=== PATIENT | female | born 1960 | race Two or more races ===

== ENCOUNTER 2022-04-03 18:49 | Emergency (ER) | payer MEDICAID, OTHER ==
[~2022-04-03] VITALS: Ht 152.4 cm; Wt 82.7 kg
[2022-04-03 19:39] LABS: Basophils # (auto) 0.3 10 ^3/uL (0-0.2); Basophils % (auto) 4.1 % (0.0-2.0); Eosinophils # (auto) 0.2 10 ^3/uL (0-0.8); Eosinophils % (auto) 3.5 % (0.0-7.0); Hemoglobin 12.5 g/dL (12.2-16.2); Lymphocytes # (auto) 1.3 10 ^3/uL (0.4-5.4); Lymphocytes % (auto) 20.6 % (10.0-50.0); Mean Corpuscular Hemoglobin 29.3 pg (28.0-32.0); Mean Corpuscular Hgb Conc. 33.7 g/dL (32.0-36.0); Monocytes # (auto) 0.4 10 ^3/uL (0-1.3); Neutrophils # (auto) 4.2 10 ^3/uL (1.6-8.6); Neutrophils % (auto) 65.8 % (37.0-80.0); Nucleated Red Blood Cells % 0.4 %; Red Blood Cells 4.25 10^6/uL (4.0-5.20); Red Cell Distribution Width 13.7 % (11.8-14.3); White Blood Cell 6.4 10^3/uL (4.4-10.8)
[2022-04-03 19:57] LABS: Albumin 3.7 g/dL (3.4-5.0); Calcium 9.2 mg/dL (8.5-10.1)
[2022-04-03 19:59] LABS: Bilirubin, Total 0.3 mg/dL (0.2-1.0); Total Protein 7.2 g/dL (6.4-8.2)
[2022-04-03 20:45] LABS: Urine Bacteria NONE SEEN /hpf (None Seen); Urine Blood Negative /uL (Negative); Urine Specific Gravity 1.007 (1.001-1.035); Urine WBC <1 /hpf (0 - 5)
[2022-04-03] MEDS ORDERED: LISINOPRIL 20 MG TAB PO ONE (22:30)
[2022-04-03] MEDS ORDERED: HCTZ 25 MG TAB PO ONE (22:30)
[2022-04-03] MEDS ORDERED: LISI-707 PO (22:34)
[2022-04-03 23:09] VITALS: BP 141/68
== END 2022-04-03 23:28 | disposition home or self-care (01) ==
LOC: ER 18:49
DX: R51.9 Headache, unspecified (principal); R07.89 Other chest pain; I10 Essential (primary) hypertension; Z76.0 Encounter for issue of repeat prescription
CPT/HCPCS: 36415; 70450; 71045; 80053; 81001; 83880; 84484; 85025; 93005

== ENCOUNTER → 2024-02-06 | Outpatient (CLI) | payer BC ==
[~2024-02-06] MED LIST: LISI-707 PO
[2024-02-06 11:16] LABS: Basophils # (auto) 0 10 ^3/uL (0-0.2); Basophils % (auto) 0.7 % (0.0-2.0); Eosinophils # (auto) 0.2 10 ^3/uL (0-0.8); Eosinophils % (auto) 2.5 % (0.0-7.0); Hematocrit 39.4 % (36.0-46.0); Lymphocytes # (auto) 1.9 10 ^3/uL (0.4-5.4); Lymphocytes % (auto) 31.8 % (10.0-50.0); Mean Corpuscular Hemoglobin 29.3 pg (28.0-32.0); Mean Corpuscular Volume 88.8 fL (80.0-100.0); Monocytes # (auto) 0.4 10 ^3/uL (0-1.3); Monocytes % (auto) 6.6 % (0.0-12.0); Neutrophils # (auto) 3.5 10 ^3/uL (1.6-8.6); Neutrophils % (auto) 58.4 % (37.0-80.0); Platelet Count (auto) 294 10^3/uL (140-450); Red Blood Cells 4.43 10^6/uL (4.0-5.20); Red Cell Distribution Width 13.5 % (11.8-14.3)
[2024-02-06 11:36] LABS: Alanine Aminotransferase 56 U/L (7-40); Albumin 4.5 g/dL (3.2-4.8); Alkaline Phosphatase 68 U/L (46-116); Anion Gap 8 (5-15); Aspartate Aminotransferase 32 U/L (13-40); BUN/Creatinine Ratio 18.7 (10.0-20.0); Bilirubin, Total 0.5 mg/dL (0.2-1.0); Blood Urea Nitrogen 17 mg/dL (9-23); Calcium 10.6 mg/dL (8.7-10.4); Carbon Dioxide 29 mmol/L (20-31); Chloride 103 mmol/L (98-107); Cholesterol 158 mg/dL (< 200); Glucose 158 mg/dL (74-106); HDL Cholesterol 54 mg/dL (40-59); LDL Cholesterol 88 mg/dL (< 100); Potassium 4.2 mmol/L (3.5-5.1); Sodium 140 mmol/L (136-145); Total Protein 7.4 g/dL (5.7-8.2); Triglycerides 140 mg/dL (< 150)
[2024-02-06 11:43] LABS: Urine Blood 1+ /uL (Negative); Urine Clarity Clear (Clear); Urine Color Yellow (Yellow); Urine Protein, UAD TRACE (Negative); Urine Specific Gravity 1.021 (1.001-1.035); Urine Urobilinogen Normal (Negative); Urine pH 5.5 (5.0-9.0)
== END | disposition home or self-care (01) ==
LOC: LAB 10:53
PROVIDERS: ATTEND Internal Medicine
DX: E11.9 Type 2 diabetes mellitus without complications (principal); E78.00 Pure hypercholesterolemia, unspecified; R68.89 Other general symptoms and signs
CPT/HCPCS: 36415; 80053; 80061; 81003; 83036; 85025

== ENCOUNTER → 2024-11-14 | Outpatient (CLI) | payer BC ==
[2024-11-14 09:16] LABS: Hematocrit 36.2 % (36.0-46.0); Hemoglobin 12.3 g/dL (12.2-16.2); Mean Corpuscular Hemoglobin 29.7 pg (28.0-32.0); Mean Corpuscular Volume 87.2 fL (80.0-100.0); Nucleated Red Blood Cells % 0.0 %
[2024-11-14 09:18] LABS: Urine Protein, UAD Negative (Negative)
[2024-11-14 09:33] LABS: Albumin 4.3 g/dL (3.2-4.8); Alkaline Phosphatase 58 U/L (46-116); Anion Gap 8 (5-15); BUN/Creatinine Ratio 17.9 (10.0-20.0); Bilirubin, Total 0.4 mg/dL (0.2-1.0); Blood Urea Nitrogen 15 mg/dL (9-23); Calcium 9.6 mg/dL (8.7-10.4); Carbon Dioxide 29 mmol/L (20-31); Chloride 103 mmol/L (98-107); Cholesterol 149 mg/dL (< 200); HDL Cholesterol 51 mg/dL (40-59); Potassium 3.8 mmol/L (3.5-5.1); Sodium 140 mmol/L (136-145); Total Protein 7.2 g/dL (5.7-8.2)
[2024-11-14 09:35] LABS: Alanine Aminotransferase 46 U/L (7-40); Glucose 119 mg/dL (74-106); Triglycerides 168 mg/dL (< 150)
== END | disposition home or self-care (01) ==
LOC: LAB 08:57
PROVIDERS: ATTEND Internal Medicine
DX: E11.69 Type 2 diabetes mellitus with other specified complication (principal); E78.00 Pure hypercholesterolemia, unspecified; R68.89 Other general symptoms and signs; Z12.11 Encounter for screening for malignant neoplasm of colon
CPT/HCPCS: 36415; 80053; 80061; 81001; 83036; 85025

== ENCOUNTER 2024-11-21 12:28 | Outpatient (CLI) | payer BC | END 2024-11-21 17:00 | disposition home or self-care (01) | LOC: LAB 12:28 | PROVIDERS: ATTEND Internal Medicine | DX: E11.69 Type 2 diabetes mellitus with other specified complication (principal); E78.00 Pure hypercholesterolemia, unspecified; R68.89 Other general symptoms and signs; Z12.11 Encounter for screening for malignant neoplasm of colon | CPT/HCPCS: 82270 ==